=== PATIENT | female | born 1995 | race Caucasian/White ===

== ENCOUNTER 2022-02-26 15:55 | Emergency (ER) | payer OTHER ==
[~2022-02-26] VITALS: Ht 162.6 cm; Wt 86.2 kg
[2022-02-26 15:58] VITALS: BP 109/77
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
[2022-02-26 18:05] VITALS: BP 114/70
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
== END 2022-02-26 18:05 | disposition home or self-care (01) ==
LOC: MED 15:55
DX: S10.93XA Contusion of unspecified part of neck, initial encounter (principal); S40.011A Contusion of right shoulder, initial encounter; S40.012A Contusion of left shoulder, initial encounter; V89.2XXA Person injured in unspecified motor-vehicle accident, traffic, initial encounter; Y93.89 Activity, other specified; Y92.89 Other specified places as the place of occurrence of the external cause; Y99.8 Other external cause status
CPT/HCPCS: 71045; 72040; 73030; 99284